=== PATIENT | male | born 1985 | race Caucasian/White ===

== ENCOUNTER 2016-08-28 11:50 | Emergency (ER) | payer OTHER ==
--- NOTE | 2016-08-28 12:24 | EDDOCDS ---
Physician Documentation [facility] Name: Chato Cifuentes Age: 31 yrs Sex: Male : 1985 Arrival Date: 08/28/2016 Time: 11:50 Bed TR7 [facility] MD: Disposition: 08/28/16 12:15 Discharged to Home/Self Care. Impression: Fall on same level due to ice and snow, Concussion without loss of consciousness. - Condition is Stable. - Discharge Instructions: Head Injury, Adult. - Medication Reconciliation form. - Follow up: Aparna Stanley MD; When: Call to arrange an appointment; Reason: Recheck today's complaints, Continuance of care, To establish care. - Problem is new. - Symptoms are unchanged. Historical: - Allergies: no known allergies; - Home Meds: 1. none - PMHx: none; - PSHx: none; - Social history: Smoking status: Patient states was never smoker of tobacco. No barriers to communication noted, The patient speaks fluent Citizen Of [place]. - Family history: Not pertinent. - : The pt / caregiver states he / she is not on anticoagulants. Home medication list is obtained from the patient. - Exposure Risk Screening:: None identified. Vital Signs: 08/28 11:52 BP 133 / 72 RA Supine (auto/lg); Pulse 92; Resp 18; Temp 98.5(O); Pulse Ox 96% on R/A; bnb Weight 104.33 kg / 230.01 lbs; Height 5 ft. 11 in. (180.34 cm); Pain 2/10; 11:52 Body Mass Index 32.08 (104.33 kg, 180.34 cm) bnb [place] Coma Score: 11:57 Eye Response: spontaneous(4). Verbal Response: oriented(5). Motor Response: obeys rs3 commands(6). Total: 15. Signatures: Afsaneh Chisholm RN RN rs3 Roseanne Duarte RN RN pml Geoff Kinney, GEORGIEC PAMartha cc10 MTDD
--- NOTE | 2016-08-28 12:24 | EDDOCDS ---
Nurse's Notes [facility] Name: Chato Cifuentes Age: 31 yrs Sex: Male : 1985 Arrival Date: 08/28/2016 Time: 11:50 Bed TR7 Private MD: Diagnosis: Fall on same level due to ice and snow;Concussion without loss of consciousness Presentation: 08/28 11:57 Presenting complaint: Patient states: slipped and fell yesterday injured back of the rs3 head. denies loss of consciousness. reports of headache not resolved. This patient has no additional risk factors. Mechanism of Injury: resulted from a fall. Adult Sepsis Screening: The patient does not have new or worsening altered mentation. Patient's respiratory rate is less than 22. Systolic blood pressure is greater than 100. Patient has a qSOFA score of 0- Negative Sepsis Screen. Suicide/Homicide risk assessment- the patient denies having any suicidal and/or homicidal ideations and does not present with any other emotional, behavioral or mental health complaints. Status: Patient is not a services host or dependent. Transition of care: patient was not received from another setting of care. 11:57 Acuity: WILMAR Level 4 rs3 11:57 Method Of Arrival: Walkin/Carried/Asstd rs3 Triage Assessment: 11:58 General: Appears in no apparent distress. Pain: Location: scalp. HIV screening NA for rs3 this visit Offered previously. Neurological: Level of Consciousness is awake, alert, Reports headache. Historical: - Allergies: no known allergies; - Home Meds: 1. none - PMHx: none; - PSHx: none; - Social history: Smoking status: Patient states was never smoker of tobacco. No barriers to communication noted, The patient speaks fluent Uzbek. - Family history: Not pertinent. - : The pt / caregiver states he / she is not on anticoagulants. Home medication list is obtained from the patient. - Exposure Risk Screening:: None identified. Screenin:21 Screening information is obtained from the patient. Fall risk: No risks identified. pml Assistance ADL's: requires no assistance with activities of daily living. Abuse/DV Screen: The patient / caregiver reports he/she is: not in a situation that causes fear, pain or injury. Nutritional screening: No deficits noted. Advance Directives: Currently, there is no health care proxy. home support is adequate. Assessment: 12:21 General: Appears in no apparent distress, Behavior is appropriate for age, cooperative. pml Pain: Location: scalp. Neurological: Level of Consciousness is awake, alert, Oriented to person, place, time. Cardiovascular: Capillary refill < 3 seconds. Respiratory: Airway is patent Respiratory effort is even, unlabored. GI: Abdomen is non- distended. Derm: Skin is pink, warm & dry. Vital Signs: 11:52 BP 133 / 72 RA Supine (auto/lg); Pulse 92; Resp 18; Temp 98.5(O); Pulse Ox 96% on R/A; bnb Weight 104.33 kg; Height 5 ft. 11 in. (180.34 cm); Pain 2/10; 11:52 Body Mass Index 32.08 (104.33 kg, 180.34 cm) bnb Vitals: 11:52 Log In Time: August 28, 2016 at 11:48. bnb [place] Coma Score: 11:57 Eye Response: spontaneous(4). Verbal Response: oriented(5). Motor Response: obeys rs3 commands(6). Total: 15. ED Course: 11:51 Patient visited by Raquel Hays PCA. bnb 11:51 Patient moved to Waiting bnb 11:54 Patient visited by Raquel Hays PCA. bnb 11:54 Patient moved to Pre RCE bnb 11:58 Triage Initiated rs3 11:59 Patient moved to Triage 3 rs3 12:00 [facility] cc10 12:00 Naseem Dorado MD is Attending Physician. cc10 12:05 Patient visited by Geoff Kinney PA-C. cc10 12:05 Patient visited by Geoff Kinney PA-C. cc10 12:15 Aparna Stanley MD is Referral Physician. cc10 12:21 Patient moved to TR7 ar3 12:21 The patient / caregiver is instructed regarding the plan of care and ED course. Patient pml has correct armband on for positive identification. Bed in low position. Call light in reach. 12:21 No IV's were initiated during this patient's visit. No procedures done that require pml assistance. Order Results: There are currently no results for this order. Outcome: 12:15 Discharge ordered by Provider. cc10 12:21 Discharge Assessment: Patient awake, alert and oriented x 3. No cognitive and/or pml functional deficits noted. Patient verbalized understanding of disposition instructions. patient administered narcotics - no. The following High Risk Discharge criteria are identified: None. Discharged to home ambulatory. Condition: good Condition: stable. Discharge instructions given to patient, Instructed on discharge instructions, follow up and referral plans. Demonstrated understanding of instructions, Pt was receptive of discharge instructions/ teaching. No special radiology studies were completed. Property sent home with patient. 12:23 Patient left the ED. pml Signatures: Afsaneh Chisholm,RN RN rs3 Mitzi Joy, [facility] ar3 Roseanne Duarte RN RN pml Geoff Kinney, PAKarissaC PAKarissaC cc10 Raquel Hays, [facility] bnb MTDD
[2016-08-29] MEDS ORDERED: LORazepam 2 MG/ML VIAL (J2060) As Ordered ONE (13:02)
[2016-08-29] MEDS ORDERED: MORPHINE 2 MG/ML 1ML SYRINGE As Ordered ONE (13:02)
--- NOTE | 2016-08-30 13:23 | EDDOCDS ---
Physician Documentation [facility] Name: Chato Cifuentes Age: 31 yrs Sex: Male : 1985 Arrival Date: 08/28/2016 Time: 11:50 Bed TR7 Private MD: Disposition: 08/28/16 12:15 Discharged to Home/Self Care. Impression: Fall on same level due to ice and snow, Concussion without loss of consciousness. - Condition is Stable. - Discharge Instructions: Head Injury, Adult. - Medication Reconciliation form. - Follow up: Aparna Stanley MD; When: Call to arrange an appointment; Reason: Recheck today's complaints, Continuance of care, To establish care. - Problem is new. - Symptoms are unchanged. Historical: - Allergies: no known allergies; - Home Meds: 1. none - PMHx: none; - PSHx: none; - Social history: Smoking status: Patient states was never smoker of tobacco. No barriers to communication noted, The patient speaks fluent Faroese. - Family history: Not pertinent. - : The pt / caregiver states he / she is not on anticoagulants. Home medication list is obtained from the patient. - Exposure Risk Screening:: None identified. Vital Signs: 08/28 11:52 BP 133 / 72 RA Supine (auto/lg); Pulse 92; Resp 18; Temp 98.5(O); Pulse Ox 96% on R/A; bnb Weight 104.33 kg / 230.01 lbs; Height 5 ft. 11 in. (180.34 cm); Pain 2/10; 11:52 Body Mass Index 32.08 (104.33 kg, 180.34 cm) bnb [place] Coma Score: 11:57 Eye Response: spontaneous(4). Verbal Response: oriented(5). Motor Response: obeys rs3 commands(6). Total: 15. MDM: 12:37 [facility] [place] Agreement was scanned into [employer] and attached to record. b 12:37 Financial registration complete. mpb 08/29 14:28 T-Sheet-- Draft Copy was scanned into [employer] and attached to record. gb Signatures: Kelley Lazaro, Reg Reg gb Afsaneh Chisholm RN RN rs3 Roseanne Duarte RN RN pml Geoff Kinney PA-C PAKarissaC cc10 Torrey Cherry, Reg Reg mpb The chart was reviewed and I authenticate all verbal orders and agree with the evaluation and treatment provided.Attachments: 08/28 12:37 [facility] Payment Agreement mpb 08/29 14:28 T-Sheet-- Draft Copy gb Chart Complete MTDD
--- NOTE | 2016-08-30 13:23 | EDDOCDS ---
Nurse's Notes [facility] Name: Chato Cifuentes Age: 31 yrs Sex: Male : 1985 Arrival Date: 08/28/2016 Time: 11:50 Bed TR7 Private MD: Diagnosis: Fall on same level due to ice and snow;Concussion without loss of consciousness Presentation: 08/28 11:57 Presenting complaint: Patient states: slipped and fell yesterday injured back of the rs3 head. denies loss of consciousness. reports of headache not resolved. This patient has no additional risk factors. Mechanism of Injury: resulted from a fall. Adult Sepsis Screening: The patient does not have new or worsening altered mentation. Patient's respiratory rate is less than 22. Systolic blood pressure is greater than 100. Patient has a qSOFA score of 0- Negative Sepsis Screen. Suicide/Homicide risk assessment- the patient denies having any suicidal and/or homicidal ideations and does not present with any other emotional, behavioral or mental health complaints. Status: Patient is not a building services coordinator or dependent. Transition of care: patient was not received from another setting of care. 11:57 Acuity: WILMAR Level 4 rs3 11:57 Method Of Arrival: Walkin/Carried/Asstd rs3 Triage Assessment: 11:58 General: Appears in no apparent distress. Pain: Location: scalp. HIV screening NA for rs3 this visit Offered previously. Neurological: Level of Consciousness is awake, alert, Reports headache. Historical: - Allergies: no known allergies; - Home Meds: 1. none - PMHx: none; - PSHx: none; - Social history: Smoking status: Patient states was never smoker of tobacco. No barriers to communication noted, The patient speaks fluent Icelandic. - Family history: Not pertinent. - : The pt / caregiver states he / she is not on anticoagulants. Home medication list is obtained from the patient. - Exposure Risk Screening:: None identified. Screenin:21 Screening information is obtained from the patient. Fall risk: No risks identified. pml Assistance ADL's: requires no assistance with activities of daily living. Abuse/DV Screen: The patient / caregiver reports he/she is: not in a situation that causes fear, pain or injury. Nutritional screening: No deficits noted. Advance Directives: Currently, there is no health care proxy. home support is adequate. Assessment: 12:21 General: Appears in no apparent distress, Behavior is appropriate for age, cooperative. pml Pain: Location: scalp. Neurological: Level of Consciousness is awake, alert, Oriented to person, place, time. Cardiovascular: Capillary refill < 3 seconds. Respiratory: Airway is patent Respiratory effort is even, unlabored. GI: Abdomen is non- distended. Derm: Skin is pink, warm & dry. Vital Signs: 11:52 BP 133 / 72 RA Supine (auto/lg); Pulse 92; Resp 18; Temp 98.5(O); Pulse Ox 96% on R/A; bnb Weight 104.33 kg; Height 5 ft. 11 in. (180.34 cm); Pain 210; 11:52 Body Mass Index 32.08 (104.33 kg, 180.34 cm) bnb Vitals: 11:52 Log In Time: August 28, 2016 at 11:48. bnb [place] Coma Score: 11:57 Eye Response: spontaneous(4). Verbal Response: oriented(5). Motor Response: obeys rs3 commands(6). Total: 15. ED Course: 11:51 Patient visited by Raquel Hays PCA. bnb 11:51 Patient moved to Waiting bnb 11:54 Patient visited by Raquel Hays PCA. bnb 11:54 Patient moved to Pre RCE bnb 11:58 Triage Initiated rs3 11:59 Patient moved to Triage 3 rs3 12:00 Geoff Kinney [facility]C [facility] cc10 12:00 Naseem Dorado MD is Attending Physician. cc10 12:05 Patient visited by Geoff Kinney PA-C. cc10 12:05 Patient visited by Geoff Kinney PA-C. cc10 12:15 Aparna Stanley MD is Referral Physician. cc10 12:21 Patient moved to TR7 ar3 12:21 The patient / caregiver is instructed regarding the plan of care and ED course. Patient pml has correct armband on for positive identification. Bed in low position. Call light in reach. 12:21 No IV's were initiated during this patient's visit. No procedures done that require pml assistance. 12:32 Patient name changed from Chato\S\\S\Cifuentes\S\ to Chato\S\ \S\Cifuentes. EDMS 12:37 [facility] [place] Agreement was scanned into [employer] and attached to record. mpb 08/29 14:28 T-Sheet-- Draft Copy was scanned into [employer] and attached to record. gb Order Results: There are currently no results for this order. Outcome: 08/28 12:15 Discharge ordered by Provider. cc10 12:21 Discharge Assessment: Patient awake, alert and oriented x 3. No cognitive and/or pml functional deficits noted. Patient verbalized understanding of disposition instructions. patient administered narcotics - no. The following High Risk Discharge criteria are identified: None. Discharged to home ambulatory. Condition: good Condition: stable. Discharge instructions given to patient, Instructed on discharge instructions, follow up and referral plans. Demonstrated understanding of instructions, Pt was receptive of discharge instructions/ teaching. No special radiology studies were completed. Property sent home with patient. 12:23 Patient left the ED. pml Signatures: Dispatcher [employer] EDMS Kelley Lazaro, Reg Reg gb Afsaneh Chisholm,RN RN rs3 Mitzi Joy, WATCHMAKING TEACHER WATCHMAKING TEACHER ar3 Roseanne DuarteRN RN pml Geoff Kinney, PA-C PA-C cc10 oTrrey Cherry, Reg Reg mpb Raquel Hays, WATCHMAKING TEACHER WATCHMAKING TEACHER bnb Chart Complete MTDD
--- NOTE | 2016-08-30 13:23 | EDDOCDS ---
Physician Documentation [facility] Name: Chato Cifuentes Age: 31 yrs Sex: Male : 1985 Arrival Date: 08/28/2016 Time: 11:50 Bed TR7 Private MD: Disposition: 08/28/16 12:15 Discharged to Home/Self Care. Impression: Fall on same level due to ice and snow, Concussion without loss of consciousness. - Condition is Stable. - Discharge Instructions: Head Injury, Adult. - Medication Reconciliation form. - Follow up: Aparna Stanley MD; When: Call to arrange an appointment; Reason: Recheck today's complaints, Continuance of care, To establish care. - Problem is new. - Symptoms are unchanged. Historical: - Allergies: no known allergies; - Home Meds: 1. none - PMHx: none; - PSHx: none; - Social history: Smoking status: Patient states was never smoker of tobacco. No barriers to communication noted, The patient speaks fluent Citizen Of [place]. - Family history: Not pertinent. - : The pt / caregiver states he / she is not on anticoagulants. Home medication list is obtained from the patient. - Exposure Risk Screening:: None identified. Vital Signs: 08/28 11:52 BP 133 / 72 RA Supine (auto/lg); Pulse 92; Resp 18; Temp 98.5(O); Pulse Ox 96% on R/A; bnb Weight 104.33 kg / 230.01 lbs; Height 5 ft. 11 in. (180.34 cm); Pain 2/10; 11:52 Body Mass Index 32.08 (104.33 kg, 180.34 cm) bnb [place] Coma Score: 11:57 Eye Response: spontaneous(4). Verbal Response: oriented(5). Motor Response: obeys rs3 commands(6). Total: 15. MDM: 12:37 [facility] [place] Agreement was scanned into [employer] and attached to record. b 12:37 Financial registration complete. mpb 08/29 14:28 T-Sheet-- Draft Copy was scanned into [employer] and attached to record. gb Signatures: Kelley Lazaro, Reg Reg gb Afsaneh Chisholm RN RN rs3 Roseanne Duarte RN RN pml Geoff Kinney PA-C PAKarissaC cc10 Torrey Cherry, Reg Reg mpb The chart was reviewed and I authenticate all verbal orders and agree with the evaluation and treatment provided.Attachments: 08/28 12:37 [facility] [place] Payment Agreement mpb 08/29 14:28 T-Sheet-- Draft Copy gb Chart Complete MTDD
== END 2016-08-28 12:23 | disposition home or self-care (01) ==
LOC: M ED 11:50
DX: S06.0X1A Concussion with loss of consciousness of 30 minutes or less, initial encounter (principal); W00.9XXA Unspecified fall due to ice and snow, initial encounter; Y92.828 Other wilderness area as the place of occurrence of the external cause; Y93.29 Activity, other involving ice and snow; Y99.8 Other external cause status

== ENCOUNTER → 2019-06-24 | Outpatient (REF) | payer OTHER | LOC: M SMT 13:39 | PROVIDERS: ATTEND Urology | DX: Z30.2 Encounter for sterilization (principal) ==

== ENCOUNTER → 2019-12-17 | Outpatient (CLI) | payer OTHER ==
[2019-12-17 10:47] LABS: BASO # 0.1 10^3/uL (0.0-0.2); BASO % 1.1 % (0.0-1.0); EOS # 0.1 10^3/uL (0.0-0.5); EOS % 1.9 % (0.0-3.0); HEMATOCRIT 44.5 % (42.0-52.0); HEMOGLOBIN 15.3 g/dl (13.5-17.5); LYMPH # 1.5 10^3/uL (1.5-5.0); LYMPH % 26.9 % (24.0-44.0); MEAN CORPUSCULAR HGB CONC 34.4 g/dl (32.0-36.5); MEAN CORPUSCULAR VOLUME 87.3 fl (80.0-96.0); MONO # 0.5 10^3/uL (0.0-0.8); NEUTROPHILS # 3.2 10^3/uL (1.5-8.5); PLATELET COUNT, AUTOMATED 224 10^3/uL (150-450); WHITE BLOOD COUNT 5.4 10^3/uL (4.0-10.0)
[2019-12-17 12:01] LABS: BLOOD UREA NITROGEN 11 MG/DL (7-18); CALCIUM LEVEL 9.2 MG/DL (8.5-10.1); CARBON DIOXIDE LEVEL 26 MEQ/L (21-32); CHLORIDE LEVEL 106 MEQ/L (98-107); CPK CREATINE PHOSPHOKINASE 136 U/L (39-308); CREATININE FOR GFR 0.87 MG/DL (0.70-1.30); GLOMERULAR FILTRATION RATE > 60.0 (>60); GLUCOSE, FASTING 92 MG/DL (70-100); POTASSIUM SERUM 4.2 MEQ/L (3.5-5.1); SODIUM LEVEL 138 MEQ/L (136-145); TROPONIN I < 0.02 NG/ML (< 0.10)
== END ==
LOC: M LAB 09:39
PROVIDERS: ATTEND Physician Assistant
DX: R07.9 Chest pain, unspecified (principal)

== ENCOUNTER → 2020-01-01 | Outpatient (CLI) | payer OTHER ==
--- NOTE | 2020-01-05 07:57 | ECHO ---
DATE OF PROCEDURE: 01/01/2020 DATE OF : 1985 AGE: 34 REFERRING PROVIDER: BECKY Esqueda PATIENT LOCATION: Outpatient. REASON FOR THE STUDY: Chest pain, unspecified. 2-D MEASUREMENTS: IVS: 1.0 cm LV: 4.2 cm LVPW: 1.0 cm LA: 3.1 cm Aorta: 3.0 cm RV: 3.1 IVC: 1.7 DOPPLER MEASUREMENTS: Peak velocity across the aortic valve: 1.2 m/s Peak velocity across the LVOT: 1.1 m/s Amanda E: 0.85 Mitral A: 0.63 Ratio: 1.4 Maximum tricuspid valve velocity: 2.1 m/s 2-D COMMENTS: 1. Normal left ventricular size, wall thickness, and normal global left ventricular systolic function. The estimated ventricular systolic ejection fraction is 60-65%. 2. Normal left atrium. Normal right atrium and right ventricle. 3. The atrial septum appeared to be normal without evidence of defect or shunt. 4. Normal aortic root. 5. No pericardial effusion seen. 6. Normal aortic valve. Minimally calcified mitral annulus with normal anterior mitral valve leaflet motion. Normal tricuspid valve and pulmonic valve. The proximal pulmonary artery branches appeared to be normal. 7. The inferior vena cava was normal in size, central venous pressure is most likely normal. DOPPLER: It detects trace mitral regurgitation and trace tricuspid regurgitation. The calculated pulmonary artery systolic pressure was normal. Assessment of the left ventricular diastolic function also was normal. IMPRESSION: 1. Normal global left ventricular systolic and diastolic function. 2. Mitral annulus calcification with trace mitral regurgitation. 3. Trace tricuspid regurgitation with a normal calculated pulmonary artery systolic pressure. 4. Relatively normal transthoracic echocardiogram. MTDD
== END ==
LOC: M CARPUL 10:19
PROVIDERS: ATTEND Physician Assistant
DX: R07.9 Chest pain, unspecified (principal)

== ENCOUNTER → 2020-02-26 | Outpatient (REF) | payer OTHER ==
[2020-04-27 09:14] LABS: SEMEN APPEARANCE OPAQUE (OPAQUE)
[2020-04-27 09:15] LABS: SEMEN VISCOSITY LIQUID (LIQUID); SEMEN VOLUME 2.7 ml (2.0-5.0); WBC CONCENTRATION >1 M/ml (<=1 M/ml)
== END ==
LOC: M SMT 08:51
PROVIDERS: ATTEND Urology
DX: Z30.2 Encounter for sterilization (principal)

== ENCOUNTER → 2021-10-08 | Outpatient (CLI) | payer OTHER ==
[2021-10-08 08:17] LABS: BASO # 0.1 10^3/uL (0.0-0.2); BASO % 1.3 % (0.0-1.0); EOS # 0.1 10^3/uL (0.0-0.5); EOS % 1.4 % (0.0-3.0); HEMATOCRIT 46.1 % (42.0-52.0); LYMPH # 1.5 10^3/uL (1.5-5.0); LYMPH % 24.1 % (24.0-44.0); MEAN CORPUSCULAR HEMOGLOBIN 29.8 pg (27.0-33.0); MEAN CORPUSCULAR HGB CONC 34.7 g/dl (32.0-36.5); MEAN CORPUSCULAR VOLUME 85.8 fl (80.0-96.0); MONO # 0.6 10^3/uL (0.0-0.8); MONO % 9.2 % (2.0-8.0); NEUTROPHILS # 3.9 10^3/uL (1.5-8.5); NEUTROPHILS % 61.6 % (36.0-66.0); PLATELET COUNT, AUTOMATED 205 10^3/uL (150-450); RED BLOOD COUNT 5.37 10^6/uL (4.30-6.10); WHITE BLOOD COUNT 6.3 10^3/uL (4.0-10.0)
[2021-10-08 08:42] LABS: ALBUMIN 4.4 GM/DL (3.2-5.2); ALT/SGPT 51 U/L (12-78); BILIRUBIN,TOTAL 0.6 MG/DL (0.2-1.0); BLOOD UREA NITROGEN 21 MG/DL (7-18); CALCIUM LEVEL 9.3 MG/DL (8.5-10.1); CARBON DIOXIDE LEVEL 28 MEQ/L (21-32); CHLORIDE LEVEL 106 MEQ/L (98-107); CHOLESTEROL LEVEL 288 MG/DL (<200); CHOLESTEROL RISK RATIO 10.666 (<5); CREATININE FOR GFR 0.92 MG/DL (0.70-1.30); FREE T4 1.11 NG/DL (0.76-1.46); GLOMERULAR FILTRATION RATE > 60.0 (>60); GLUCOSE, FASTING 94 MG/DL (70-100); HDL CHOLESTEROL 27 MG/DL (>40); NON-HDL-C 261 MG/DL; POTASSIUM SERUM 4.4 MEQ/L (3.5-5.1); SODIUM LEVEL 139 MEQ/L (136-145); TOTAL PROTEIN 7.5 GM/DL (6.4-8.2); TRIGLYCERIDES LEVEL 422 MG/DL (<150)
== END ==
LOC: M LAB 07:38
PROVIDERS: ATTEND Nurse Practitioner Adult Health
DX: Z13.220 Encounter for screening for lipoid disorders (principal); Z13.29 Encounter for screening for other suspected endocrine disorder; Z13.228 Encounter for screening for other metabolic disorders

== ENCOUNTER → 2024-11-01 | Outpatient (CLI) | payer OTHER ==
[2024-11-01 07:38] LABS: BASO # 0.1 10^3/uL (0.0-0.2); BASO % 1.1 % (0.0-1.0); EOS # 0.1 10^3/uL (0.0-0.5); EOS % 2.1 % (0.0-3.0); HEMATOCRIT 45.9 % (42.0-52.0); HEMOGLOBIN 15.6 g/dl (13.5-17.5); LYMPH # 1.7 10^3/uL (1.5-5.0); LYMPH % 34.7 % (24.0-44.0); MEAN CORPUSCULAR HEMOGLOBIN 29.6 pg (27.0-33.0); MEAN CORPUSCULAR VOLUME 87.1 fl (80.0-96.0); MONO # 0.6 10^3/uL (0.0-0.8); MONO % 11.6 % (2.0-8.0); NEUTROPHILS # 2.4 10^3/uL (1.5-8.5); NEUTROPHILS % 50.1 % (36.0-66.0); PLATELET COUNT, AUTOMATED 214 10^3/uL (150-450); RED BLOOD COUNT 5.27 10^6/uL (4.30-6.10); WHITE BLOOD COUNT 4.8 10^3/uL (4.0-10.0)
[2024-11-01 08:11] LABS: THYROID STIMULATING HORMONE 2.757 uIU/ML (0.55-4.78)
[2024-11-01 08:20] LABS: FREE T4 1.45 NG/DL (0.89-1.76)
[2024-11-01 09:02] LABS: ALKALINE PHOSPHATASE 152 U/L (40-129); ALT/SGPT 31 U/L (7.0-40); AST/SGOT 19 U/L (<34); BILIRUBIN,TOTAL 0.6 MG/DL (0.3-1.2); BLOOD UREA NITROGEN 31 MG/DL (9-23); CALCIUM LEVEL 9.7 MG/DL (8.5-10.1); CARBON DIOXIDE LEVEL 27 MMOL/L (20-31); CHLORIDE LEVEL 103 MMOL/L (98-107); CHOLESTEROL LEVEL 216 MG/DL (<200); CHOLESTEROL RISK RATIO 6.39 (<5); CREATININE FOR GFR 0.94 MG/DL (0.70-1.30); GLOMERULAR FILTRATION RATE > 90.0 (>60); GLUCOSE, FASTING 87 MG/DL (60-100); HDL CHOLESTEROL 33.8 MG/DL (>40); NON-HDL-C 182.2 MG/DL; POTASSIUM SERUM 4.6 MMOL/L (3.5-5.1); SODIUM LEVEL 138 MMOL/L (136-145); TOTAL PROTEIN 6.8 G/DL (5.7-8.2); TRIGLYCERIDES LEVEL 106 MG/DL (<150)
== END ==
LOC: M LAB 06:49
PROVIDERS: ATTEND Nurse Practitioner Adult Health
DX: Z13.0 Encounter for screening for diseases of the blood and blood-forming organs and certain disorders involving the immune mechanism (principal); E78.2 Mixed hyperlipidemia; Z13.29 Encounter for screening for other suspected endocrine disorder